=== PATIENT | female | born 1955 | race Caucasian/White ===

== ENCOUNTER → 2018-06-15 | Outpatient (CLI) | payer MEDICARE, BC ==
[~2018-06-15] MED LIST: ABILIFY5 MG PO; AMBIEN 10MG10 MG PO; ARTHROTEC PO; ASPIR-LOW81 MG PO; ASPIRIN 81M81 MG/TA2 PO; B-121000 MCG PO; COENZYME Q-10100 M1 PO; CYMBALTA 60MG60 MG PO; DESYREL 100MG100 MG PO; DILAUDID 4MG TAB4 MG PO; FLEXERIL10 MG PO; FLUOXETINE40 MG PO; FOLIC ACID 11 MG/TA1 PO; FORTAMET500 MG PO; GLUCOPHAGE500 MG/TAB PO; HYDROCODONE BIT1 TA3 PO; INDERAL LA 60MG60 MG PO; JANUVIA 100MG100 MG PO; LIPITOR20 MG PO; LISINOPRIL10 MG PO; LISINOPRIL20 MG PO; LORTAB 5/500 501 TAB PO; LYRICA 100MG C100 M1 PO; LYRICA100 MG PO; MASON NATURAL1200 MG PO; MILLIPRED DP5 MG PO; MOBIC 7.5MG7.5 MG PO; MOBIC7.5 MG PO; NIACIN 100100 MG/TAB; NIACOR500 MG PO; NORCO 325 MG-7.1 TAB PO; OCUVITE1 TA1 PO; OXYCONTIN 20MG20 MG PO; PEPCID 20MG TAB20 MG PO; PERCOCET 325 MG1 TA2 PO; PREDNISONE10 MG PO; PRILOSEC10 MG PO; PROBIOTIC FORMU1 CAP PO; PROZAC40 MG PO; REQUIP 0.5MG0.5 MG PO; TRICOR 48MG48 MG PO; ZESTRIL 20MG TA20 MG PO
== END ==
LOC: MC.RAD 13:52
DX: Z12.31 Encounter for screening mammogram for malignant neoplasm of breast (principal); N63.21 Unspecified lump in the left breast, upper outer quadrant; Z98.82 Breast implant status

== ENCOUNTER → 2018-06-22 | Outpatient (CLI) | payer MEDICARE, BC | LOC: MC.RAD 13:00 | DX: N63.20 Unspecified lump in the left breast, unspecified quadrant (principal) ==

== ENCOUNTER → 2018-06-26 | Outpatient (CLI) | payer MEDICARE, BC | LOC: MC.RAD 07:23 | DX: N60.02 Solitary cyst of left breast (principal); R92.8 Other abnormal and inconclusive findings on diagnostic imaging of breast; Z98.82 Breast implant status ==

== ENCOUNTER → 2020-09-23 | Outpatient (CLI) | payer MEDICARE, BC | LOC: MC.RAD 13:00 | DX: Z12.31 Encounter for screening mammogram for malignant neoplasm of breast (principal) ==

== ENCOUNTER → 2021-10-28 | Outpatient (CLI) | payer MEDICARE, BC | LOC: MC.RAD 12:59 | DX: Z12.31 Encounter for screening mammogram for malignant neoplasm of breast (principal); N64.89 Other specified disorders of breast ==

== ENCOUNTER → 2021-11-05 | Outpatient (CLI) | payer MEDICARE, BC | LOC: MC.RAD 13:36 | DX: N60.12 Diffuse cystic mastopathy of left breast (principal); N60.11 Diffuse cystic mastopathy of right breast ==

== ENCOUNTER 2022-01-26 16:22 | Inpatient (IN) | payer MEDICARE, BC ==
[~2022-01-26] VITALS: Ht 165.1 cm; Wt 82.5 kg
[2022-01-26 17:11] LABS: BASO # 0.1 K/mm3 (0.0-0.2); BASO % 0.5 % (0.0-2.0); EOS # 0.3 K/mm3 (0.0-0.7); GRAN # 9.1 K/mm3 (1.4-6.5); GRAN % 74.1 % (42.2-75.2); HEMATOCRIT 37.2 % (37.0-47.0); HEMOGLOBIN 11.8 g/dl (12.5-16.0); LYMPH # 1.7 K/mm3 (1.2-3.4); LYMPH % 14.1 % (20.0-51.0); MEAN CELL VOLUME 85 fl (80.0-100.0); MEAN CORPUSCULAR HEMOGLOBIN 27 pg (27-31); MEAN CORPUSCULAR HGB CONC 32 g/dl (33.0-37.0); MEAN PLATELET VOLUME 8.6 fl (7.4-10.4); MONO # 1.1 K/mm3 (0.1-0.6); MONO % 8.8 % (1.7-9.3); PLATELET COUNT 480 K/mm3 (130-400); RED BLOOD COUNT 4.37 M/mm3 (4.10-5.30); REDCELL DISTRIBUTION WIDTH-CV 16.5 % (11.5-14.5)
[2022-01-26 17:33] LABS: ALBUMIN 2.4 gm/dL (3.4-4.8); BILIRUBIN,TOTAL 0.4 mg/dL (0.2-1.2); C-REACTIVE PROTEIN 14.24 mg/dL (0.00-0.50); CALCIUM 11.4 mg/dL (8.4-10.2); CREATININE, serum 0.99 mg/dL (0.57-1.11); TOTAL PROTEIN 8.8 gm/dL (6.2-8.1)
[2022-01-26 17:38] LABS: COLLECTION METHOD CLEAN CATCH
[2022-01-26 17:56] LABS: MUCOUS Present (NOT PRESENT); SQUAMOUS EPITHELIAL 0-2 /hpf (0-10); URINE BACTERIA None Seen /hpf (NONE SEEN); URINE RBC 0-2 /hpf (0-2)
[2022-01-26 17:57] LABS: URINE APPEARANCE Clear (CLEAR/HAZY); URINE COLOR Yellow (YELLOW)
[2022-01-26 17:58] LABS: PH 5 (5-8); URINE BLOOD Negative (NEGATIVE); URINE GLUCOSE Negative (NEGATIVE); URINE KETONE Negative (NEGATIVE); URINE NITRATE Negative (NEGATIVE); URINE PROTEIN(semi-quant) 1+ (NEGATIVE)
[2022-01-26] MEDS ORDERED: PRILOSEC 20MG20 MG PO (22:40)
[2022-01-26] MEDS ORDERED: FOLIC ACID 11 MG/TA1 PO (22:42)
[2022-01-26] MEDS ORDERED: VITAMIN D31000 I1 PO (22:42)
[2022-01-26 23:37] LABS: MAGNESIUM 1.8 mg/dL (1.6-2.6); PHOSPHOROUS 2.8 mg/dL (2.3-4.7)
[2022-01-26 23:57] LABS: THYROID STIMULATING HORMONE 0.379 uIU/mL (0.350-4.940)
[2022-01-27 08:00] LABS: BASO # 0.1 K/mm3 (0.0-0.2); BASO % 0.7 % (0.0-2.0); EOS # 0.4 K/mm3 (0.0-0.7); EOS % 3.8 % (0.0-4.0); GRAN # 7.2 K/mm3 (1.4-6.5); GRAN % 66.4 % (42.2-75.2); HEMOGLOBIN 10.4 g/dl (12.5-16.0); LYMPH # 2.1 K/mm3 (1.2-3.4); LYMPH % 19.3 % (20.0-51.0); MEAN CELL VOLUME 87 fl (80.0-100.0); MEAN CORPUSCULAR HEMOGLOBIN 27 pg (27-31); MEAN CORPUSCULAR HGB CONC 31 g/dl (33.0-37.0); MEAN PLATELET VOLUME 8.6 fl (7.4-10.4); MONO % 9.2 % (1.7-9.3); PLATELET COUNT 420 K/mm3 (130-400); RED BLOOD COUNT 3.86 M/mm3 (4.10-5.30); REDCELL DISTRIBUTION WIDTH-CV 16.6 % (11.5-14.5)
[2022-01-27 08:03] LABS: HEMATOCRIT 33.7 % (37.0-47.0)
[2022-01-27 08:13] LABS: CALCIUM 10.9 mg/dL (8.4-10.2); CREATININE, serum 0.91 mg/dL (0.57-1.11); POTASSIUM 3.6 mmol/L (3.5-4.5)
[2022-01-27 11:15] VITALS: BP 129/66; PULSE 85; TEMP 98.6
--- NOTE | 2022-01-27 11:39 | NUR ---
Dr. Landon notified of urology cons. Pt. will most likely not have renal bx and is okay to eat today. Will contact hospitalist for diet order
--- NOTE | 2022-01-27 12:52 | NUR ---
PT TO THE FLOOR AT 1005, WITH IV ON HER RH, ALERT AND ORIENTED X 4, FAMILY PRESENT, ORIENTATION PROVIDED, VISITING HOURS DISCUSSED, CALL LIGHT AND PERSONAL ITEMS WITHIN REACH, HOSPITALIST IN ROOM FOR EXAM.
--- NOTE | 2022-01-27 14:43 | NUR ---
CALLED DR. MEJIA AT 1443 AND INFORMED HIM ABOUT THIS PATIENTS REFERRAL FOR ONCOLOGY.
--- NOTE | 2022-01-27 16:07 | NUR ---
Pt up to ambulate to bathroom. She vomited less than 5mL and reports feeling nausea. PRN Zofran given. Dr. Landon here to see pt. Daughter at the bedside. Pt. sitting up in bed. Call light is within her reach. Bed alarm is turned on
[2022-01-27 16:09] VITALS: BP 118/67; PULSE 80; TEMP 98.2
--- NOTE | 2022-01-27 19:00 | NUR ---
RECEIVED CHANGE OF SHIFT REPORT FROM DAY SHIFT RN.
[2022-01-27 19:02] VITALS: BP 113/57; PULSE 83; TEMP 98.4
[2022-01-27 23:36] VITALS: BP 119/59; PULSE 87; TEMP 98.6
[2022-01-28 03:13] VITALS: BP 124/63; PULSE 90; TEMP 98.5
[2022-01-28 06:12] LABS: BASO # 0.1 K/mm3 (0.0-0.2); BASO % 0.8 % (0.0-2.0); EOS # 0.6 K/mm3 (0.0-0.7); EOS % 5.3 % (0.0-4.0); GRAN % 63.7 % (42.2-75.2); LYMPH # 2.2 K/mm3 (1.2-3.4); LYMPH % 19.7 % (20.0-51.0); MEAN CELL VOLUME 87 fl (80.0-100.0); MEAN CORPUSCULAR HGB CONC 31 g/dl (33.0-37.0); MONO # 1.1 K/mm3 (0.1-0.6); PLATELET COUNT 434 K/mm3 (130-400); RED BLOOD COUNT 3.68 M/mm3 (4.10-5.30); REDCELL DISTRIBUTION WIDTH-CV 16.3 % (11.5-14.5)
[2022-01-28 06:20] LABS: HEMATOCRIT 31.9 % (37.0-47.0); HEMOGLOBIN 9.9 g/dl (12.5-16.0); MEAN CORPUSCULAR HEMOGLOBIN 27 pg (27-31)
[2022-01-28 06:27] LABS: CALCIUM 10.6 mg/dL (8.4-10.2); CREATININE, serum 1.13 mg/dL (0.57-1.11); POTASSIUM 3.8 mmol/L (3.5-4.5)
--- NOTE | 2022-01-28 06:40 | NUR ---
awake sitting up on side of bed, bedside shift report received from EMMY Sandoval
--- NOTE | 2022-01-28 07:07 | NUR ---
CHANGE OF SHIFT REPORT GIVEN TO DAY SHIFT JEAN CLAUDE BOOTH.
[2022-01-28 07:21] VITALS: BP 102/81; PULSE 84; TEMP 98.3
--- NOTE | 2022-01-28 07:50 | NUR ---
resting in bed with eyes closed,
--- NOTE | 2022-01-28 08:15 | NUR ---
awake and visiting with family now, full assessment completed, see interventions for further info, assisted up to bathroom, has steady slow gait,
--- NOTE | 2022-01-28 09:21 | NUR ---
JOY met with the patient, her (Ladarius, ph#[phone]), and daughter (Elaine) to discuss discharge plan. The patient lives in [place] with her . She reports independence with ADLs and has a cane, walker, and wheelchair available. The patient's PCP is Dr. Danay Andrea and she receives her medications from [facility] in . The patient does not have a DPOA-HC, but she was interested in obtaining a form. JOY provided. The patient plans to return home with her upon discharge. No additional needs at this time. *Discharge plan: home with *
[2022-01-28] MEDS ORDERED: ZOFRAN 4MG T4 MG/TAB PO (10:31)
--- NOTE | 2022-01-28 11:30 | NUR ---
discharge instructions given to pateint and her , verbalizes understanding
--- NOTE | 2022-01-28 11:50 | NUR ---
discharged per WC
== END 2022-01-28 11:50 | disposition home or self-care (01) | DRG 687 ==
LOC: COL.ER 16:22 → SURG 21:51
PROVIDERS: Nurse Practitioner Family; Physician Assistant; ADMIT Student in an Organized Health Care Education/Training Program
DX: C64.1 Malignant neoplasm of right kidney, except renal pelvis (principal); C78.00 Secondary malignant neoplasm of unspecified lung; E87.1 Hypo-osmolality and hyponatremia; R65.10 Systemic inflammatory response syndrome (SIRS) of non-infectious origin without acute organ dysfunction; C77.2 Secondary and unspecified malignant neoplasm of intra-abdominal lymph nodes; M79.7 Fibromyalgia; I10 Essential (primary) hypertension; M06.9 Rheumatoid arthritis, unspecified; G89.29 Other chronic pain; F17.210 Nicotine dependence, cigarettes, uncomplicated; E83.52 Hypercalcemia; D64.9 Anemia, unspecified; D75.839 Thrombocytosis, unspecified; E11.65 Type 2 diabetes mellitus with hyperglycemia; E78.5 Hyperlipidemia, unspecified; R63.4 Abnormal weight loss; Z90.49 Acquired absence of other specified parts of digestive tract; Z91.010 Allergy to peanuts; Z79.82 Long term (current) use of aspirin; Z72.89 Other problems related to lifestyle; Z90.711 Acquired absence of uterus with remaining cervical stump; Z23 Encounter for immunization; Z68.29 Body mass index [BMI] 29.0-29.9, adult; Z80.3 Family history of malignant neoplasm of breast
CPT/HCPCS: J1170; J1940; J2405; J7030; Q9967

== ENCOUNTER 2022-02-10 08:14 | Inpatient (IN) | payer MEDICARE, BC ==
[~2022-02-10] VITALS: Ht 165.1 cm; Wt 79.1 kg
[~2022-02-10 08:14] MED LIST changes: +PRILOSEC 20MG20 MG PO; +VITAMIN D31000 I1 PO; +ZOFRAN 4MG T4 MG/TAB PO
[2022-02-13 10:15] VITALS: BP 136/77; PULSE 119; TEMP 98.1
[2022-02-13 11:53] LABS: BASO # 0.1 K/mm3 (0.0-0.2); BASO % 0.6 % (0.0-2.0); EOS # 0.2 K/mm3 (0.0-0.7); EOS % 1.2 % (0.0-4.0); GRAN # 9.3 K/mm3 (1.4-6.5); HEMATOCRIT 37.7 % (37.0-47.0); HEMOGLOBIN 11.5 g/dl (12.5-16.0); LYMPH # 1.9 K/mm3 (1.2-3.4); LYMPH % 14.9 % (20.0-51.0); MEAN CELL VOLUME 87 fl (80.0-100.0); MEAN CORPUSCULAR HEMOGLOBIN 27 pg (27-31); MEAN CORPUSCULAR HGB CONC 31 g/dl (33.0-37.0); MEAN PLATELET VOLUME 8.7 fl (7.4-10.4); MONO % 7.9 % (1.7-9.3); PLATELET COUNT 508 K/mm3 (130-400); RED BLOOD COUNT 4.32 M/mm3 (4.10-5.30); REDCELL DISTRIBUTION WIDTH-CV 15.8 % (11.5-14.5)
--- NOTE | 2022-02-13 12:00 | NUR ---
Pt recently arrived as a direct admit for surgery in a couple days. Notified Dr Epps and Dr Landon. New orders received. Labs have been drawn and IV started in right hand. Pt does have family present in the room. Oriented pt to her room and educated on room service. Pt stated that she was here recently. Pt is steady on her feet. Educated to notify nursing when she needs to use the restroom or when she would like to get up.
[2022-02-13 12:11] VITALS: BP 121/61; PULSE 95; TEMP 98.4
[2022-02-13 12:15] LABS: CREATININE, serum 1.21 mg/dL (0.57-1.11); MAGNESIUM 1.9 mg/dL (1.6-2.6); PHOSPHOROUS 1.9 mg/dL (2.3-4.7); POTASSIUM 3.8 mmol/L (3.5-4.5)
[2022-02-13 12:21] LABS: CALCIUM 12.6 mg/dL (8.4-10.2)
[2022-02-13 15:25] VITALS: BP 123/67; PULSE 93; TEMP 98.3
--- NOTE | 2022-02-13 16:00 | NUR ---
PT does not have IS at this time
--- NOTE | 2022-02-13 17:12 | NUR ---
Pt has been nauseated most of the day. She stated that she takes zofran at home prior to each meal otherwise she stated that she always vomits. Asked for scopolomine patch which was ordered. Family has been present off and on throughout the day. Pain managed with oral pain medication. Pt reports that her pain is in her back. No other needs, will continue to monitor
[2022-02-13 20:00] VITALS: BP 110/77; PULSE 80; TEMP 97.6
[2022-02-14] VITALS (7 sets, daily range): BP systolic 105–134; BP diastolic 52–64; PULSE 81–97; TEMP 97.9–100.1
[2022-02-14 07:09] LABS: CALCIUM 11.3 mg/dL (8.4-10.2); CREATININE, serum 1.06 mg/dL (0.57-1.11); POTASSIUM 3.9 mmol/L (3.5-4.5)
--- NOTE | 2022-02-14 08:00 | NUR ---
PATIENT IS ORIENTED X4. VSS. DENIES COMPLAINTS THIS AM. PATIENT ASSISTED TO BATHROOM WITH 1 ASSIST TO VOID. TOLERATED ACTIVITY. PATIENT IS WEAK AND A LITTLE DROWSY THIS AM. NO C/O N/V. IV FLUIDS INFUSING INTO RIGHT HAND IV VIA PUMP. AM MEDS GIVEN. HEAD TO TOE ASSESSMENT COMPLETE. NO OTHER NEEDS AT THIS TIME. CALL LIGHT IN REACH.
--- NOTE | 2022-02-14 13:30 | NUR ---
street worker met with patient at bedside to complete intake and discuss discharge plan. Patient reports that she lives at home in [place] with her Ladarius ([phone]). Ladarius is present at bedside. Patient is independent with her ADL's and does not utilize any DME to assist with mobility at home. Patient has no home oxygen needs. PCP is and she utiliizes [facility] in for prescriptions. Patient does not have a DPOA-HC established. During interaction patient appears drowsy and denies wanting to establish one at this time. Patient is planning on returning home once medically ready. Discharge plan: Home with spouse
--- NOTE | 2022-02-14 14:03 | NUR ---
Oma: Hinduism Situation: Bladder Blower stopped by on rounds Background: Pt was content and resting Assessment: Pt appreciated the visit Recommendation: industrial design intern will follow up as needed
--- NOTE | 2022-02-14 16:50 | NUR ---
NOTED LOW GRADE TEMP OF 100.1. PATIENT HAS BEEN TIRED ALL DAY. ALTHOUGH DROWSY, PATIENT RESPONDS APPROPRIATLEY WHEN ARROUSED. CALL HOSPITALIST. GAVE PRN TYLENOL, SEE MAR. PATIENT RESTING IN BED WITH COVERS OFF. PATIENT HAD SEVERAL BLANKETS ON HER. FAMILY AT BEDSIDE.
--- NOTE | 2022-02-14 23:39 | NUR ---
SHIFT CHANGE FROM CHUYITA RN. PATIENT IN BED ON ROOM ENTRY. STATED SHE NEEDED TO VOID BUT WAS TOLD AT SHIFT CHANGE THAT SHE IS A 2 ASSIST OR NEEDED TO USE THE BEDPAN. OFFERED PATIENT PUREWICK FOR OVERNIGHT, PATIENT AND FAMILY IN AGREEANCE, PUREWICK IN PLACE, WORKING PROPERLY. DENIES PAIN CONTROL NEEDS AT THIS TIME. TO BE NPO AT MIDNIGHT. DENIES ADDITIONAL NEEDS. CALL LIGHT IN REACH.
--- NOTE | 2022-02-14 23:41 | NUR ---
TEMP RESOLVED. 98.2 CURRENTLY.
[2022-02-15 04:14] VITALS: BP 131/56; PULSE 88; TEMP 98.1
[2022-02-15 06:38] LABS: CALCIUM 9.8 mg/dL (8.4-10.2); CREATININE, serum 1.13 mg/dL (0.57-1.11); POTASSIUM 3.9 mmol/L (3.5-4.5)
[2022-02-15 07:09] LABS: MEAN CELL VOLUME 87 fl (80.0-100.0); MEAN CORPUSCULAR HGB CONC 30 g/dl (33.0-37.0); MEAN PLATELET VOLUME 9.2 fl (7.4-10.4); PLATELET COUNT 438 K/mm3 (130-400); RED BLOOD COUNT 3.63 M/mm3 (4.10-5.30); REDCELL DISTRIBUTION WIDTH-CV 16.1 % (11.5-14.5)
[2022-02-15 07:13] LABS: HEMATOCRIT 31.6 % (37.0-47.0); HEMOGLOBIN 9.6 g/dl (12.5-16.0); MEAN CORPUSCULAR HEMOGLOBIN 26 pg (27-31)
--- NOTE | 2022-02-15 08:00 | NUR ---
PATIENT IS A&O THIS AM AND SITTING UP IN BED VISITING WITH HER AND DAUGHTER. VSS. DENIES COMPLAINTS. NPO FOR PENDING SURGERY TODAY. OBTAINED CONSENT FROM PATIENT, ON CHART. IV FLUIDS INFUSING VIA PUMP INTO RIGHT HAND. AM BS OF 86. HEAD TO TOE ASSESSMENT COMPLETE. CALL LIGHT IN REACH.
[2022-02-15 08:18] VITALS: BP 123/64; PULSE 90; TEMP 98.6
[2022-02-15 08:55] LABS: BAND 4 % (0-10); EOSINOPHIL 5 % (0-4); LYMPHOCYTE 24 % (20.0-51.0); MYELOCYTE 1 % (0-0); NEUTROPHILS 60 % (42.0-75.2); PLATELET ESTIMATE INCREASED (NORMAL)
--- NOTE | 2022-02-15 10:00 | NUR ---
PATIENT GOING DOWN TO OR. CONSENT ON CHART. OR TECH AT BEDSIDE WAS RE-CONSENTING PATIENT STATING "SHE COULD'T FINE CONSENT", NURSING SHOWED HER IT WAS RIGHT ON THE FRONT OF THE CHART SHE HAD. PATIENT WAS CONSENT WITH FAMILY PRESENT THIS AM. PATIENT HAS BEEN NPO. IV FLUIDS TO GRAVITY. PATIENT GOING DOWN TO OR VIA BED.
--- NOTE | 2022-02-15 14:05 | NUR ---
PATIENT IS BACK IN ROOM 346 POST OP. ORIENTED BUT VERY DROWSY. VSS. NO COMPLAINTS. ABD LAP SITE X5 WITH BANDAIDS. MIDLINE WITH GAUZE & HYPAFIX IS CD&I. ABD IS DISTENDED, SOFT AND WITH HYPO BOWL SOUNDS. IV FLUIDS INFUSING VIA PUMP. WATER AT BEDSIDE, NO STRAWS, NO CARBINATION. MENDIETA TO DD WITH SMALL AMOUNTS OF YELLOW URINE. NO FAMILY AT BEDSIDE. PACU NURSES TO GO CHECK SURGICAL WAITING AREA THEY WERE UNABLE TO REACH ANYONE BY PHONE. PATIENT RESTING COMFORTABLY WITHOUT ANY NEEDS. CALL LIGHT IN REACH.
--- NOTE | 2022-02-15 16:35 | NUR ---
PATIENT NOW AWAKE AND REPORTING SOME ABD DISCOMFORT AND WOULD LIKE PAIN MEDS. GAVE PRN OSCAR, SEE MAR. PATIENT REPOSITIONED TO COMFORT. DAUGHTER AT BEDSIDE. NO OTHER NEEDS.
[2022-02-15 20:11] VITALS: BP 118/53; PULSE 85; TEMP 97.2
--- NOTE | 2022-02-15 20:50 | NUR ---
PT IN BED. WAS ABLE TO DANGLE, STAND AND MOVE UP TOWARDS HEAD OF BED WITH ONE ASSIST. REPORTS PAIN TO RT ABD. MEDICATED WITH HS MEDS INCLUDING SCHEDULED OXYCONTIN 20MG PO. HAS INT TO LEFT HAND AND IVF TO RFA INFUSING WITHOUT PROBLEM. ROBOTIC SITES X5 WITH BANDAIDS, SMALL MIDLINE WITH ABD. DRSG INTACT. MENDIETA TO BSD WITH YELLOW URINE. DENIES FLATUS, GOOD BOWEL SOUNDS.
[2022-02-15 23:20] VITALS: BP 119/70; PULSE 90; TEMP 98
[2022-02-16 04:00] VITALS: BP 127/70; PULSE 77; TEMP 97.7
--- NOTE | 2022-02-16 04:03 | NUR ---
PT ASKS FOR PAIN MEDS, NORCO 7.5MG PO GIVEN AT THIS TIME.
--- NOTE | 2022-02-16 05:30 | NUR ---
IV SITE TO RT HAND LEAKING, DC'D WITH ANGIOCATH INTACT. IVF CONNECTED TO LEFT HAND IV SITE, IVF INFUSING WITHOUT PROBLEM.
[2022-02-16 06:59] LABS: HEMOGLOBIN 10.4 g/dl (12.5-16.0); MEAN CELL VOLUME 85 fl (80.0-100.0); MEAN CORPUSCULAR HEMOGLOBIN 27 pg (27-31); MEAN CORPUSCULAR HGB CONC 32 g/dl (33.0-37.0); MEAN PLATELET VOLUME 9.2 fl (7.4-10.4); PLATELET COUNT 437 K/mm3 (130-400); RED BLOOD COUNT 3.88 M/mm3 (4.10-5.30); REDCELL DISTRIBUTION WIDTH-CV 15.9 % (11.5-14.5)
[2022-02-16 07:06] LABS: HEMATOCRIT 32.9 % (37.0-47.0)
[2022-02-16 07:16] VITALS: BP 123/68; PULSE 66; TEMP 97.7
[2022-02-16 08:04] LABS: CREATININE, serum 1.48 mg/dL (0.57-1.11); POTASSIUM 3.9 mmol/L (3.5-4.5)
--- NOTE | 2022-02-16 08:47 | NUR ---
Pt doing okay this morning. Dr Landon has been in to see pt, new orders wrote. Discussed that she can have a general diet. She currently has a clear liquid tray. Pt reports that she is okay with the liquids for right now. Pt had hairston catheter which has been removed per order. Educated pt that she will need to use call light when she needs to use the restroom. Also informed her that PT will be working with her today and frequent ambulation is important for her healing. Scheduled pain medication given at this time. No other needs, will continue to monitor
--- NOTE | 2022-02-16 10:00 | NUR ---
Pt requesting pain medicaiton. Reviewed with her and her family about the scheduled pain medication as well as the Ralph that is PRN every 6 hours. Okay to give Ralph at this time. Reviewed diet order with them as well and updated white board. Pt is currently sitting up in the chair. She does have complaints of her shoulders bothering her. Gave K-pad at this time
[2022-02-16 11:09] VITALS: BP 119/69; PULSE 83; TEMP 97.7
[2022-02-16 15:50] VITALS: BP 125/64; PULSE 96; TEMP 97.7
[2022-02-16 19:42] VITALS: BP 108/68; PULSE 80; TEMP 97.7
[2022-02-17 00:11] VITALS: BP 128/68; PULSE 77; TEMP 97.5
--- NOTE | 2022-02-17 00:41 | NUR ---
SHIFT REPORT FROM ALY BOOTH. PATIENT IN BED ON ROOM ENTRY. HS MEDS PER EMAR. LAP SITES AND MIDLINE CDI. IV TO INT. DENIES ADDITIONAL NEEDS. CALL LIGHT IN REACH.
[2022-02-17 05:08] VITALS: BP 115/65; PULSE 80; TEMP 97.6
[2022-02-17 06:33] LABS: MEAN CELL VOLUME 89 fl (80.0-100.0); MEAN CORPUSCULAR HGB CONC 30 g/dl (33.0-37.0); MEAN PLATELET VOLUME 9.2 fl (7.4-10.4); PLATELET COUNT 425 K/mm3 (130-400); RED BLOOD COUNT 3.46 M/mm3 (4.10-5.30); REDCELL DISTRIBUTION WIDTH-CV 16.3 % (11.5-14.5)
[2022-02-17 06:37] LABS: HEMATOCRIT 30.8 % (37.0-47.0); HEMOGLOBIN 9.2 g/dl (12.5-16.0); MEAN CORPUSCULAR HEMOGLOBIN 27 pg (27-31)
[2022-02-17 06:53] LABS: CREATININE, serum 1.41 mg/dL (0.57-1.11); POTASSIUM 3.4 mmol/L (3.5-4.5)
[2022-02-17] MEDS ORDERED: SENOKOT S 50 MG1 TAB PO (07:43)
[2022-02-17] MEDS ORDERED: NORCO 325 MG-7.1 TAB PO (07:43)
[2022-02-17 08:00] VITALS: BP 101/58; PULSE 78; TEMP 97.6
--- NOTE | 2022-02-17 09:52 | NUR ---
PATIENT ALERT AND ORIENTED X4. VSS. PATIENT HERE FOR RIGHT NEPHECTOMY. PATIENT COMPLAINS OF PAIN 01/26. PATIENT RECEIVED SCHEDULED OXYCONTIN. LEFT HAND INT FLUSHES WELL. MIDLINE INCISION OPEN TO ROOM AIR, NO DRAINAGE. LAP SITES X3 NO DRAINAGE WITH BANDAIDS. PATIENT RESTING IN BED WITH CALL LIGHT NEAR.
[2022-02-17 11:43] VITALS: BP 97/58; PULSE 78; TEMP 97.9; TEMP 98.1
--- NOTE | 2022-02-17 13:05 | NUR ---
DISCHARGE INSTRUCTIONS PROVIDED. PATIENT EDUCATION GIVEN. FOLLOW UP APPOINTMENTS DISCUSSED. PATIENT DENIES ANY QUESTIONS OR CONCERNS. IV DC'D. PATIENT ESCORTED OUT VIA WHEELCHAIR.
== END 2022-02-17 12:45 | disposition home or self-care (01) | DRG 656 ==
LOC: SURG 02-13 10:12
PROVIDERS: Student in an Organized Health Care Education/Training Program; ADMIT Urology
PROC: 8E0W4CZ Robotic Assisted Procedure of Trunk Region, Percutaneous Endoscopic Approach (ICD-10-PCS; 2022-02-15)
PROC: 0TT04ZZ Resection of Right Kidney, Percutaneous Endoscopic Approach (ICD-10-PCS; principal; 2022-02-15 10:45)
DX: C64.1 Malignant neoplasm of right kidney, except renal pelvis (principal); E43 Unspecified severe protein-calorie malnutrition; C78.00 Secondary malignant neoplasm of unspecified lung; E87.1 Hypo-osmolality and hyponatremia; E83.52 Hypercalcemia; E78.5 Hyperlipidemia, unspecified; I10 Essential (primary) hypertension; M06.9 Rheumatoid arthritis, unspecified; M79.7 Fibromyalgia; D64.9 Anemia, unspecified; G89.29 Other chronic pain; D75.839 Thrombocytosis, unspecified; G13.0 Paraneoplastic neuromyopathy and neuropathy; K21.9 Gastro-esophageal reflux disease without esophagitis; M19.90 Unspecified osteoarthritis, unspecified site; F32.A Depression, unspecified; F41.9 Anxiety disorder, unspecified; M54.9 Dorsalgia, unspecified; Z79.82 Long term (current) use of aspirin; Z88.0 Allergy status to penicillin; Z87.891 Personal history of nicotine dependence
CPT/HCPCS: A4314; J0330; J1100; J1815; J2250; J2405; J2430; J2704; J2795; J3010; J7030; J7040

== ENCOUNTER → 2022-07-28 | Outpatient (CLI) | payer MEDICARE, BC ==
[~2022-07-28] MED LIST changes: +SENOKOT S 50 MG1 TAB PO; +ZYRTEC 10MG10 MG PO
== END ==
LOC: COL.RAD 12:02
DX: C64.9 Malignant neoplasm of unspecified kidney, except renal pelvis (principal)

== ENCOUNTER → 2023-08-22 | Outpatient (CLI) | payer MEDICARE, BC ==
[~2023-08-22] MED LIST changes: +ELIQUIS 5MG PO; +EPIPEN 2-PAK1 MG/ML IM; +PREDNISONE20 MG PO
== END ==
LOC: COL.RAD 08:26
DX: C64.1 Malignant neoplasm of right kidney, except renal pelvis (principal); R91.8 Other nonspecific abnormal finding of lung field